=== PATIENT | male | born 1960 | race Caucasian/White ===

== ENCOUNTER 2018-03-24 10:28 | Outpatient (CLI) | payer MEDICAID, SELFPAY ==
[2018-03-24 13:16] LABS: HCT 44.7 % (40.0-50.0); Mean Corp. HGB Concentration 33.6 g/dL (32.0-36.0); Mean Corpuscular Hemoglobin 29.8 pg (27.0-33.0); Mean Corpuscular Volume 88.7 fL (80-95); Mean Platelet Volume 9.6 fL (8.0-11.0); Platelet Count 241 x1000/uL (130-400); RBC 5.04 m/cumm (4.50-6.00); RBC Distribution Width 14.3 % (11.8-14.1); White Blood Cell Count 5.91 k/cumm (4.4-10.8)
[2018-03-24 13:30] LABS: ALT 32 U/L (12-78); AST 27 U/L (15-37); Alkaline Phosphatase 68 U/L (46-116); BUN 18 mg/dL (7-18); Bilirubin, Total 0.8 mg/dL (0.2-1.0); CREATININE 1.06 mg/dL (0.70-1.30); Calcium 9.1 mg/dL (8.5-10.1); Chloride 104 mmol/L (98-107); Cholesterol 182 mg/dL (50-200); Glucose 86 mg/dL (70-100); HDL Cholesterol 59 mg/dL (40-60); LDL CHOLESTEROL 97 mg/dL (<100); Potassium 4.7 mmol/L (3.5-5.1); Sodium 140 mmol/L (136-145); Total Protein 7.1 g/dL (6.4-8.2); Triglyceride 74 mg/dL (30-150)
== END 2018-03-24 10:48 ==
PROVIDERS: PCP Family Medicine; Visit Provider Family Medicine
DX: E78.6 Lipoprotein deficiency (principal); G47.33 Obstructive sleep apnea (adult) (pediatric); L71.9 Rosacea, unspecified; K21.0 Gastro-esophageal reflux disease with esophagitis
CPT/HCPCS: 36415; 80053; 80061; 83721; 85027

== ENCOUNTER 2019-03-29 10:03 | Outpatient (CLI) | payer MEDICAID, SELFPAY ==
[2019-03-29 14:09] LABS: ALT 41 U/L (16-63); AST 27 U/L (15-37); Albumin 4.2 g/dL (3.4-5.0); Alkaline Phosphatase 63 U/L (46-116); Anion Gap 9.5 mmol/L (3-11); BUN 16 mg/dL (7-18); Bilirubin, Total 0.5 mg/dL (0.2-1.0); CO2 25.5 mmol/L (21.0-32.0); CREATININE 1.19 mg/dL (0.70-1.30); Calcium 8.8 mg/dL (8.5-10.1); Chloride 105 mmol/L (98-107); Glucose 99 mg/dL (74-106); Potassium 4.3 mmol/L (3.5-5.1); Sodium 140 mmol/L (136-145); Total Protein 7.3 g/dL (6.4-8.2)
== END 2019-03-29 10:23 ==
PROVIDERS: PCP Family Medicine; Visit Provider Family Medicine
DX: Z00.00 Encounter for general adult medical examination without abnormal findings (principal)
CPT/HCPCS: 36415; 80053

== ENCOUNTER 2022-04-18 09:55 | Outpatient (CLI) | payer MEDICAID, SELFPAY ==
[2022-04-18 13:17] LABS: ALT 29 U/L (16-63); AST 34 U/L (15-37); Alkaline Phosphatase 65 U/L (46-116); BUN 12 mg/dL (7-18); Bilirubin, Total 0.7 mg/dL (0.2-1.0); CREATININE 1.2 mg/dL (0.70-1.30); Calcium 8.7 mg/dL (8.5-10.1); Calculated LDL 104 mg/dL (<100); Chloride 106 mmol/L (98-107); Cholesterol 173 mg/dL (<200); Estimated GFR 69.23 (mL/min/1.73m2); Glucose 100 mg/dL (74-106); HDL Cholesterol 46 mg/dL (40-60); Sodium 140 mmol/L (136-145); Total Protein 7.3 g/dL (6.4-8.2); Triglyceride 115 mg/dL (<150)
[2022-04-20 12:03] LABS: HIV-1/2 Ag & Ab Screen Negative (Negative)
[2022-04-21 10:16] LABS: Hepatitis C Ab w Rflx HCV PCR Negative (Negative)
== END 2022-04-18 09:56 | disposition home or self-care (01) ==
LOC: LOS 09:55
PROVIDERS: PCP Family Medicine; Referring Provider Family Medicine; Visit Provider Family Medicine
DX: Z13.6 Encounter for screening for cardiovascular disorders (principal); Z00.00 Encounter for general adult medical examination without abnormal findings; R73.01 Impaired fasting glucose; Z11.4 Encounter for screening for human immunodeficiency virus [HIV]
CPT/HCPCS: 36415; 80053; 80061; 86803; 87389; 83036

== ENCOUNTER 2022-09-02 10:05 | Outpatient (CLI) | payer MEDICAID, SELFPAY ==
--- NOTE | 2022-09-02 10:00 | DI.RAD_ITS ---
Exam(s) XR KNEE RT 3V AP,LAT,GERSON EXAM: XR KNEE RT 3V AP,LAT,GERSON CLINICAL HISTORY: Right knee pain. TECHNIQUE: 2D digital imaging was performed of the right knee. Three views obtained. Merchant, AP an d lateral views were obtained. COMPARISON: No exams were available for comparison FINDINGS: BONES: No acute fracture is present. No bony destructive lesion is seen. JOINTS: The knee is normally aligned. No joint effusion is seen. SOFT TISSUE: Normal. IMPRESSION: Unremarkable radiographs of the right knee. DATA REPOSITORY: RADIATION DOSE DELIVERED:
== END 2022-09-02 10:06 | disposition home or self-care (01) ==
LOC: DIORS 10:05
PROVIDERS: PCP Family Medicine; Visit Provider Student in an Organized Health Care Education/Training Program
DX: M25.561 Pain in right knee (principal)
CPT/HCPCS: 73562

== ENCOUNTER 2022-09-24 00:56 | Outpatient (CLI) | payer MEDICAID, SELFPAY ==
--- NOTE | 2022-09-24 06:45 | DI.MRI_ITS ---
Exam(s) MR LOWER JOINT RT WO EXAM: MR LOWER JOINT RT WO CLINICAL HISTORY: PAIN,acute medial meniscal tear,[id number]. TECHNIQUE: Multiplanar multisequence MRI was performed. COMPARISON: CR XR KNEE RT 3V AP,LAT,GERSON from 09/02/2022 FINDINGS: BONES: There is no fracture. Mild edema in the medial aspect of the medial femoral condyle. JOINTS: A small joint effusion is present. Articular cartilage: Patellofemoral joint: Articular cartilage is unremarkable. Medial femoral tibial joint: Articular cartilage is unremarkable. Lateral femoral tibial joint: Articular cartilage is unremarkable. TENDONS: Extensor mechanism: Unremarkable. Medial retinaculum: Unremarkable. Lateral retinaculum: Unremarkable. Popliteus: Unremarkable. MUSCLES: Unremarkable. MENISCI: The medial meniscus shows a horizontal tear at the apex of the posterior horn extending to t he superior articular surface. Additional amorphous signal in inferior aspect of the posterior body of the meniscus. The lateral meniscus is unremarkable. SOFT TISSUES: Minimal anterior subcutaneous edema. LIGAMENTS: Anterior Cruciate: Unremarkable. Posterior Cruciate: Unremarkable. Medial Collateral:Unremarkable. Lateral Collateral: Unremarkable. OTHER: IMPRESSION: Tear in the body and posterior horn of the medial meniscus. No ligament or tendon tear. DATA REPOSITORY:
== END 2022-09-24 01:16 ==
PROVIDERS: PCP Family Medicine; Visit Provider Student in an Organized Health Care Education/Training Program
DX: S83.241A Other tear of medial meniscus, current injury, right knee, initial encounter (principal); X58.XXXA Exposure to other specified factors, initial encounter
CPT/HCPCS: 73721

== ENCOUNTER 2022-10-17 10:44 | Day surgery (SDC) | payer MEDICAID, SELFPAY ==
[2022-10-17] VITALS (12 sets, daily range): BP systolic 91–140; BP diastolic 44–98; PULSE 48–77; RESP 11–18; TEMP 36.2–36.6; O2SAT 93–99; BMI 32.1
--- NOTE | 2022-10-17 06:58 | PDOC.DSDIS_ITS ---
Date of service: 10/17/22 Time of Service: 14:00 Discharge Plan Disposition Patient Disposition: Home Discharge Details Attending Provider: Paul Santiago Primary Care Provider: Courtney Leach Home Meds and New Rx's Prescriptions: New aspirin 81 mg tablet,delayed release (DR/EC) 81 mg PO DAILY 14 Days Qty: 14 0RF naproxen 250 mg tablet 250 - 500 mg PO BID PRNQty: 40 0RF Rx Instructions: take with a meal oxycodone-acetaminophen [Percocet] 5-325 mg tablet 1 - 2 tab PO Q4H MDD 30 mg PRN (Reason: Moderate to severe pain) Qty: 12 0RF Continued omeprazole 20 mg capsule,delayed release(DR/EC) 20 mg PO DAILY Qty: 90 3RF Discharge Instructions Additional Instructions: Surgery: Right knee arthroscopy with partial medial meniscectomy and synovectomy Activity: Weightbearing as tolerated. Advance range of motion as comfort allows. No knee brace or crutches needed as soon as comfortable. Recommend avoiding high-impact activies, pivoting, and squatting for 6-8 weeks. A physica l therapy prescription will be provided separately in office at follow up if needed. Prescriptions: Aspirin 81 mg take 1 daily to prevent a blood clot for 14 days Naproxen 250 mg take 1-2 every 12 hours with a meal as needed for moderate pain Oxycodone-Acetaminophen 5-325 mg take 1-2 every 4-6 hours as needed for severe pain (contains Tylenol) You may use [id number] Tylenol (acetaminophen) as needed for mild pain. These pain medications may be taken all at once or in different combinations as needed. Also, recommend Colace (docusate) as a stool softener as surgery and pain medicine cause constipation. You may try qzor-slj-ztiwxdu diphenhydramine (Benadryl) 25-50 mg nightly as a sleep aid Dressings: Leave dressing in place for 3 days. May then remove and leave open to air or cover incisions with Band-Aids. Leave the sticky Steri-Strips in place until they fall off or remove them after you shower. May shower after 5 days. Follow-up: 10-[address] Santiago You may take off the leg compression stockings this evening at home. You may also leave them on a few days longer if you have a history of leg swelling or edema. Let us know right away if you develop any redness, drainage, fevers, chest pain, or trouble breathing. Do not drink alcohol or drive for at least 24 hours after anesthesia. Please call the office during business hours with any questions or concerns. Discharge Orders Discharge Orders: Discharge Order (Routine); Ordered 10/17/22 Ordered By: Paul Santiago DS: Diagnosis Discharge Diagnosis (1) Acute medial meniscus tear of right knee: Status: Acute
--- NOTE | 2022-10-17 07:00 | ROE_ITS ---
Date of service: 10/17/22 Time of Service: 13:00 Operative Note Operative Note DATE OF PROCEDURE: 10/17/22 PRE-OP DIAGNOSIS: Right knee 1. Medial meniscus tear 2. Chondromalacia POST-OP DIAGNOSIS: same PROCEDURE: Right knee 1. Partial medial meniscectomy, CPT #31275 SURGEON: Paul Santiago CALENDER WIND UP TENDER: None None ANESTHESIA TYPE: Local By Surgeon and General LMA/ETT Refer to Anesthesia Record PATHOLOGY: none sent TOURNIQUET TIME: 0 COMPLICATIONS: None Patient was transported to: PACU Patient's condition: stable Indications: Please see complete medical record for details. Findings: Exam under anesthesia: Full range of motion, mild varus alignment, no instability Arthroscopic findings: Complex posterior horn medial meniscus tear with partial root involvement and partial extension into the meniscal body. Mild to moderate medial femoral condyle medial tibial plateau chondromalacia. Intact lateral compartment and lateral meniscus. Intact ACL. Mild patellofemoral suprapatellar synovitis. Procedure Description: In the operating room, general anesthesia was induced. The patient was positioned supine on the operating room table. All bony prominences were well- padded. Preoperative antibiotics were administered. The knee was prepped and draped in the usual sterile fashion. The correct patient, procedure, and side of the procedure were all verified prior to incision. Exam under anesthesia was performed. 10 cc of 0.25% bupivacaine containing epinephrine was infiltrated about the planned anteromedial and anterolateral knee arthroscopy portals. The portals were established and a complete diagnostic arthroscopy was performed with relevant findings detailed above. The mechanical shaver was used to remove some abundant inflamed synovium from the anterior and patellofemoral areas. The medial meniscus tear was inspected. The inferior leaflet of the posterior horn was torn and disrupted in a somewhat parrot-beak to complex fashion. There was still a remnant attachment by the root with the superior leaflet root attachment okay. The inferior tear continued obliquely near the posterior horn body junction. The superior leaflet remnant had some white zone tearing but was moderately preserved at the red-white zone and peripherally. Using a combination of hand instruments including meniscal biters and a power shaver and working through the anteromedial and anterolateral portals the meniscus was debrided of all torn tissue to a stable margin. Care was taken to preserve as much meniscus tissue was possible. The meniscal remnant was probed and found to have a stable margin, stable root, and no other tears Under direct arthroscopic visualization an 18-gauge needle was passed into the knee from superolateral into the suprapatellar pouch. The knee was copiously irrigated with arthroscopic fluid until there was a clear effluent before being drained of all fluid. The anteromedial and anterolateral portals were closed in 3-0 Monocryl in a buried interrupted fashion. 20 cc of 0.25% bupivacaine with epinephrine containing 4 mg of morphine was infiltrated into the knee through the previously placed needle. Mastisol, Steri-Strips, and 4 x 4 gauze were applied over the incisions followed by sterile soft roll. The knee was then wrapped gently with an RIVER comressive bandage. The patient awoke from anesthesia without complication and was transferred to the recovery room in a stable condition.
[2022-10-17] MEDS: Lactated Ringers 1,000 ML 30 ML IV (11:31)
--- NOTE | 2022-10-17 12:00 | ANES.PREOP_ITS ---
General Info Date of Service Date Performed: 10/17/22 Height: 5 ft 10 in Weight: 101.7 kg Body Mass Index (BMI): 32.1 Surgical Procedure: Operation Date: 10/17/22 12:25 Proposed Procedure Side Surgeon p Knee Arthroscopy w/any indicated Meniscal, Chondral and Synovial Surgery Right Paul Santiago MD Meds Allergies and Home Medications Allergies Allergy/AdvReac Type Severity Reaction Status Date / Time No Known Allergies Allergy Unverified 10/17/22 11:58 Home Medication Medication Instructions Recorded omeprazole 20 mg capsule,delayed 20 mg PO DAILY #90 caps 12/30/21 release Current Visit Medications: Current Medications Generic Name Dose Route Start Last Admin Trade Name Freq PRN Reason Stop Dose Admin Ringer's Solution 1,000 mls @ 30 mls/hr 10/17/22 06:00 10/17/22 11:31 IV 10/17/22 16:00 30 mls/hr INFUSION CALISTA Administration Cefazolin Sodium/Dextrose 2 gm in 50 mls @ 100 mls/hr 10/17/22 06:00 Ancef Duplex IVPB 10/17/22 23:59 PREOP CALISTA IV Miscellaneous Supplies 1 each 10/17/22 06:00 Iv Access IV 10/17/22 23:59 DIRECTED CALISTA Oxycodone HCl 0 mg 10/17/22 06:56 Oxycodone 5 Mg Tab PO 11/16/22 06:55 Q3H PRN PRN Pain Sodium Chloride 0 ml 10/17/22 06:00 Normal Saline Flush 10 Ml Syr IV 10/17/22 23:59 PRN PRN Sodium Chloride 0 ml 10/17/22 06:00 Normal Saline 10 Ml Vial IJ 10/17/22 23:59 DIRECTED PRN Sterile Water 0 ml 10/17/22 06:00 Water,Injection,Sterile 10 Ml Vial IJ 10/17/22 23:59 DIRECTED PRN PFSH Active Problems Active Problems: Problem Status Onset Code Acute medial meniscus tear of right knee ~03/2022 S83.241A Gastroesophageal reflux disease with esophagitis 03/23/17 K21.0 AIMEE on CPAP 03/23/17 G47.33, Z99.89 Elevated BP without diagnosis of hypertension R03.0 Medical History Medical History Actinic keratosis Family history of colonic polyps (03/23/17) brother Hemorrhoids, external Internal hemorrhoids Rosacea Tinnitus of left ear (09/03/17) normal hearing evaluation. Surgical History Surgical History EGD - MAC (04/10/17) S/P colonoscopy (~2018) [place]- normal S/P shoulder surgery Tobacco Smoking/Tobacco Use Status: Never Passive smoking exposure: Yes Alcohol Alcohol Intake: current Alcohol intake frequency: a few times a week Alcohol type: beer and wine Substance Use Substance use: Never Substance use type: does not use Vital Signs and Lab Results Vital Signs Most Recent Vital Signs in EMR: Most Recent Vital Signs Temp Pulse Resp BP Pulse Ox 36.2 C L 56 L 18 140/98 H 99 10/17/22 11:00 10/17/22 11:00 10/17/22 11:00 10/17/22 11:00 10/17/22 11:00 Lab Results Blood Type / Crossmatch: No Data to Display Complete Blood Count: No Data to Display Complete Metabolic Panel: No Data to Display Liver Function Panel: No Data to Display Coagulation Panel: No Data to Display Cardiac Panel: No Data to Display Arterial Blood Gas: No Data to Display Venous Blood Gas: No Data to Display Pancreas Panel: No Data to Display Thyroid Panel: No Data to Display Infectious Disease: No Data to Display Blood Cultures: No Data to Display Toxicology Panel: No Data to Display Anesthesia Assessment and Plan Anesthesia History Personal History: No History of Anesthesia Complications Family History: No Family History of Anesthesia Complications Exercise Tolerance Exercise Tolerance: Metabolic Equivalents>4 Pertinent Negatives Pertinent Negatives: No Symptoms of GERD (Well controlled on omeprazole), No Major Cardiovascular Symptoms or Complaints, No Major Pulmonary Symptoms or Complaints and No History of CVA/TIA Cardiac & Pulmonary Exam Cardiac Exam: Normal S1/S2 Heart Sounds Pulmonary Exam: Clear Bilateral Breath Sounds Implantable Cardiac Device Does patient have a Pacemaker or an ICD?: No Airway Exam Known Difficult Airway: No Mallampati Class: 3 Mouth Opening: Normal (> 3cm) Thyromental Distance: Greater than 3 cm Neck Range of Motion: Full ROM Neck Circumference: Normal Teeth Condition: Normal Dentition ASA Classification ASA Score: ASA 2 Emergency Case?: No NPO Status NPO Status: NPO Clears >2 hours, Solids >8 hours Anesthesia Plan Resuscitation Status: Full Code Anesthesia Technique: General Anesthesia Airway Planned: LMA Monitors Used: Standard Monitors
[2022-10-17] MEDS: ceFAZolin 2 GM/50 ML BAG IVPB (13:15)
[2022-10-17] MEDS: EPINEPHrine 30 MG/30 ML VIAL (13:34)
[2022-10-17] MEDS: MORPHine 4 MG/ML SYR (13:35)
--- NOTE | 2022-10-17 15:55 | W.ANESPOSTOP ---
Postoperative Evaluation Date, Time and Location Date Performed: 10/17/22 Time Performed: 15:55 Patient Location: PACU Vital Signs Most Recent Imported Vital Signs: Most Recent Vital Signs Temp Pulse Resp BP Pulse Ox 36.6 C 48 L 18 102/61 97 10/17/22 15:31 10/17/22 15:50 10/17/22 15:50 10/17/22 15:50 10/17/22 15:50 Pain Score Most Recent Pain Score: Most Recent Pain Score Pain Level 2 10/17/22 15:50 Assessment Mental Status: Awake (Alert & Oriented to Patient Baseline) Airway and Respiratory Function: Patent airway with normal (patient baseline) respiratory exam Cardiovascular Function: Hemodynamically Stable Hydration Status: Adequately Hydrated Nausea & Vomiting: No Nausea or Vomiting Pain: Pain is tolerable per patient Peripheral Nerve Block: Patient did not receive a nerve block
== END 2022-10-17 16:00 | disposition home or self-care (01) ==
PROVIDERS: PCP Family Medicine; Visit Provider Student in an Organized Health Care Education/Training Program
PROC: (CPT 29870; principal; 2022-10-17 12:15)
DX: M23.221 Derangement of posterior horn of medial meniscus due to old tear or injury, right knee (principal); M94.261 Chondromalacia, right knee
CPT/HCPCS: 29881; J0131; J0690; J1100; J1885; J2270; J2405; J2704

== ENCOUNTER 2024-04-29 11:40 | Outpatient (CLI) | payer MEDICAID, SELFPAY ==
[2024-04-29 12:14] LABS: ESR 6 mm/hr (0-20)
[2024-04-29 12:46] LABS: Uric Acid 6.4 mg/dL (3.5-7.2)
[2024-04-29 18:20] LABS: Rheumatoid Factor <8.6 IU/mL (<12.0)
[2024-05-02 12:09] LABS: Lyme Ab w Rflx to Lyme Confirm Negative (Negative)
[2024-05-02 14:42] LABS: ANA Interpretation Positive (Negative); ANA Titer Pattern 1:160 Homogeneous
== END 2024-04-29 11:41 | disposition home or self-care (01) ==
LOC: LOS 11:41
PROVIDERS: PCP Family Medicine; Referring Provider Family Medicine; Visit Provider Family Medicine
DX: M13.0 Polyarthritis, unspecified (principal); M1A.9XX0 Chronic gout, unspecified, without tophus (tophi); Z23 Encounter for immunization; E66.09 Other obesity due to excess calories; Z68.34 Body mass index [BMI] 34.0-34.9, adult; G47.33 Obstructive sleep apnea (adult) (pediatric); Z99.89 Dependence on other enabling machines and devices
CPT/HCPCS: 36415; 85652; 84550; 86038; 86431; 86618